=== PATIENT | male | born 1980 | race Caucasian/White ===

== ENCOUNTER 2018-07-06 09:44 | Day surgery (SDC) | payer OTHER ==
[~2018-07-06 09:44] MED LIST: CEFAZOLIN 2 GM/50 ML (PMX) 50 ML IVPB; DESFLURANE 15 MIN; LIDOCAINE 2% (SDV) 5 ML INJ; PROPOFOL 200 MG INJ; SUCCINYLCHOLINE CHLORIDE 100 MG/5 ML SYG IV
[2018-07-06] MEDS ORDERED: ONDANSETRON 4 MG INJ IV (11:00)
[2018-07-06] MEDS ORDERED: OXYCODONE/ACETAMINOPHEN (5/325) TAB PO ×2 (11:00)
[2018-07-06] MEDS ORDERED: HYDROmorphONE 1 MG/5 ML IV SYRINGE IV (11:00)
[2018-07-06] MEDS ORDERED: LABETALOL HCL 20MG INJ IV (11:00)
[2018-07-06] MEDS ORDERED: hydrALAzine 20 MG INJ IV (11:00)
[2018-07-06] MEDS ORDERED: ETOMIDATE 20 MG INJ (12:09)
[2018-07-06] MEDS ORDERED: MIDAZOLAM 1 MG/ML 2 ML INJ (12:11)
[2018-07-06] MEDS ORDERED: FENTAnyl 50 MCG/ML VIAL (12:12)
[2018-07-06] MEDS ORDERED: CEFAZOLIN 1 GM INJ (12:24)
[2018-07-06] MEDS ORDERED: ONDANSETRON 4 MG INJ (12:30)
[2018-07-06] MEDS: NEOMYC/POLYMYX/BACIT 30 GM OINT (12:40)
[2018-07-06] MEDS: HYDROmorphONE 1 MG/5 ML IV SYRINGE IV (13:21)
== END 2018-07-06 14:59 | disposition home or self-care (01) ==
LOC: SDS 09:44
DX: A63.0 Anogenital (venereal) warts (principal); F12.90 Cannabis use, unspecified, uncomplicated
CPT/HCPCS: 54065; 88305

== ENCOUNTER 2018-09-29 09:21 | Day surgery (SDC) | payer OTHER ==
[~2018-09-29 09:21] MED LIST changes: +CEFAZOLIN 1 GM INJ; -CEFAZOLIN 2 GM/50 ML (PMX) 50 ML IVPB; -DESFLURANE 15 MIN; +DEXAMETHASONE 4 MG/ML 5 ML INJ; +DIPHENHYDRAMINE 50 MG INJ IV; +EPHEDrine 25 MG/5 ML SYG IV; +FENTAnyl 50 MCG/ML VIAL; +FENTAnyl 50 MCG/ML VIAL IV; +HYDROmorphONE 1 MG/5 ML IV SYRINGE IV; +LABETALOL HCL 20MG INJ IV; -LIDOCAINE 2% (SDV) 5 ML INJ; +MEPERIDINE 25 MG INJ IV; +METOCLOPRAMIDE 10 MG INJ; +METOCLOPRAMIDE 10 MG INJ IV; +MIDAZOLAM 1 MG/ML 2 ML INJ; +ONDANSETRON 4 MG INJ; +ONDANSETRON 4 MG INJ IV; +OXYCODONE/ACETAMINOPHEN (5/325) TAB PO; +PROPOFOL 20 ML; -PROPOFOL 200 MG INJ; +ROCURONIUM 50 MG INJ; +SEVOFLURANE 15 MIN; -SUCCINYLCHOLINE CHLORIDE 100 MG/5 ML SYG IV; +hydrALAzine 20 MG INJ IV
[2018-09-29] MEDS: LACTATED RINGER'S 1,000 ML IV (10:04)
[2018-09-29] MEDS ORDERED: FENTAnyl 50 MCG/ML VIAL (10:36)
[2018-09-29] MEDS: OXYMETAZOLINE 0.05% 15 ML NAS SPRAY NASAL (10:51)
[2018-09-29] MEDS: LIDOCAINE 1%/EPI 30 ML INJ (10:51)
[2018-09-29] MEDS ORDERED: NEOSTIGMINE 3 MG/3 ML SYRINGE (12:18)
[2018-09-29] MEDS ORDERED: GLYCOPYRROLATE 0.4 MG INJ (12:18)
[2018-09-29] MEDS ORDERED: KETOROLAC 30 MG INJ (12:19)
[2018-09-29] MEDS: FENTAnyl 50 MCG/ML VIAL IV ×2 (13:08→13:19)
== END 2018-09-29 14:17 | disposition home or self-care (01) ==
LOC: SDS 09:21
DX: J34.2 Deviated nasal septum (principal); J34.3 Hypertrophy of nasal turbinates
CPT/HCPCS: 30140; 88300